=== PATIENT | male | born 1985 | race Hispanic/Latino ===

== ENCOUNTER 2017-06-10 15:15 | Emergency (ER) | payer SELFPAY | END 2017-06-10 16:22 | disposition home or self-care (01) | LOC: ERS 15:15 | DX: L50.9 Urticaria, unspecified (principal); B20 Human immunodeficiency virus [HIV] disease; F31.9 Bipolar disorder, unspecified; F41.9 Anxiety disorder, unspecified | CPT/HCPCS: 99283 ==

== ENCOUNTER 2017-11-27 21:07 | Emergency (ER) | payer SELFPAY | END 2017-11-28 01:07 | disposition home or self-care (01) | LOC: ERS 21:07 | DX: J06.9 Acute upper respiratory infection, unspecified (principal); F31.9 Bipolar disorder, unspecified; Z79.899 Other long term (current) drug therapy | CPT/HCPCS: 87081; 87430; 99283 ==

== ENCOUNTER 2018-04-24 11:27 | Inpatient (IN) | payer SELFPAY ==
[2018-04-24 12:12] LABS: #Basophils 0.1 thou/uL (0.0-0.2); #Eosinphils 0.1 thou/uL (0.0-0.7); #Lymphocytes 4.7 thou/uL (1.20-3.40); #Monocytes 1.4 thou/uL (0.11-0.59); #Neutrophils 8.5 thou/uL (1.40-6.50); %Basophils 0.4 % (0.0-1.0); %Eosinophils 0.5 % (0.0-10.0); %Lymphocytes 31.6 % (21.0-51.0); %Monocytes 9.7 % (0.0-10.0); %Neutrophils 57.7 % (42.0-75.0); Hemoglobin 16.9 g/dL (14.0-18.0); Mean Corpuscular HGB CONC 34.5 g/dL (32.0-36.0); Mean Corpuscular Hemoglobin 33.2 pg (27.0-31.0); Mean Corpuscular Volume 96.2 fL (78.0-98.0); Mean Platelet Volume 6.7 fL (7.4-10.4); Platelet Count 325 thou/uL (130-400); RBC Distribution Width 12.1 % (11.5-14.5); Red Blood Cell (RBC) Count 5.08 mill/uL (4.70-6.10); White Blood Cell (WBC) Count 14.7 thou/uL (4.8-10.8)
[2018-04-24 12:27] LABS: Actual Bicarbonate (HCO3a) 11.6 mEq/L (22-28); Base Excess (BEa) -18.1 mEq/L (-2.0 to +3.0); CO2 Tension 40.5 mmHg (35.0-45.0); O2 Tension (PaO2) 125.2 mmHg (80.0-100.0); pH, Arterial 7.07 (7.35-7.45)
[2018-04-24 12:28] LABS: Analyzer IN Cardio ER; Calcium, Ionized 1.22 mmol/L (1.12-1.30); Carboxyhemoglobin (COHb) 0.3 gm% (0.0-3.0); Hemoglobin (Hb) 18.5 g/dL (14.0-18.0); Potassium - ABG Lab 3.89 mmol/L (3.70-5.30); Puncture Site RBRACH
[2018-04-24 12:29] LABS: ALV-art Gradient 38.075 (0-20)
[2018-04-24] MEDS ORDERED: Propofol 1,000 MG/100 ML VIAL IV ONE (12:30)
[2018-04-24 12:33] LABS: ALT (SGPT) 19 U/L (8-55); AST (SGOT) 23 U/L (5-34); Acetaminophen Less than 6.0 mcg/mL (10.0-30.0); Albumin 4.5 g/dL (3.5-5.0); Alcohol Less than 10 mg/dL (Less than 10); Alkaline Phosphatase 93 U/L (40-150); Anion Gap 18 mmol/L (10-20); BUN (Urea Nitrogen) 22 mg/dL (8.9-20.6); Bilirubin, Total 0.7 mg/dL (0.2-1.2); CK (CPK) 214 U/L (30-200); Calc. Creatinine Clearance 0 mL/min (70-130); Calcium 9.4 mg/dL (7.8-10.44); Carbon Dioxide 16 mmol/L (22-29); Chloride 108 mmol/L (98-107); Estimated GFR-MDRD 61; Globulin 3.4 g/dL (2.4-3.5); Glucose 100 mg/dL (70-105); Lipase 31 U/L (8-78); Potassium 4.1 mmol/L (3.5-5.1); Protein, Total 7.9 g/dL (6.0-8.3); Salicylate Less than 8.0 mg/dL (15.0-30.0); Sodium 138 mmol/L (136-145)
[2018-04-24 12:37] LABS: CKMB 3.3 ng/mL (0-6.6); Troponin I Less than 0.010 ng/mL (< 0.028)
[2018-04-24] MEDS ORDERED: Sodium Bicarb 50 MEQ/50 ML Abboject 8.4% SYRINGE ONE (12:38)
[2018-04-24 12:39] LABS: Bilirubin Small (Negative); Blood, Urine Trace (Negative); Clarity CLEAR (Clear); Glucose, Urine (Dipstick) Negative (Negative); Leukocyte Negative (Negative); Nitrite Negative (Negative); Protein, Urine (Dipstick) 100 mg/dL (Neg-Trace); Specific Gravity, Urine 1.035 (1.002-1.036)
[2018-04-24 12:43] LABS: Squamous Epithelial 0-3 HPF (0-3); WBC/HPF 0-3 HPF (0-3)
[2018-04-24 12:44] LABS: Pathc Cast-AUWi Flag 3.05 (0-2.49)
[2018-04-24 12:47] LABS: Cocaine Metabolite Screen Detected (NotDetected); Medtox Reader # READER 4; Methamphetamine Detected (NotDetected); Phencyclidine (PCP) Detected (NotDetected); THC/Cannabinoid Screen Not Detected (NotDetected)
[2018-04-24 12:48] LABS: Amphetamine Detected (NotDetected); Barbiturates Screen Not Detected (NotDetected); Benzodiazepine Screen Not Detected (NotDetected); Medtox Control Line Valid? VALID (VALID); Methadone Not Detected (NotDetected); Opiate Screen Not Detected (NotDetected); Oxycodone Screen Not Detected (NotDetected); Tricyclic Screen Not Detected (NotDetected)
[2018-04-24 12:52] LABS: Hyaline Casts/LPF 0-3 HYALINE CAST LPF (0-3 Hyaline)
[2018-04-24 12:53] LABS: Bacteria/HPF 1+ HPF (None Seen); Manual Microscopic Reviewed? No Path Casts Seen; RBC/HPF 0-3 HPF (0-3); Renal Epithelial None Seen HPF (0-3); Transitional Epithelial NONE SEEN HPF (0-3)
--- NOTE | 2018-04-24 13:08 | CT ---
CT BRAIN WITHOUT CONTRAST: Date: 04/24/18 HISTORY: Altered mental status. COMPARISON: CT brain from 2010. FINDINGS: No acute territorial infarct or hemorrhage. No midline shift or mass effect. Ventricular size and ext ra-axial CSF spaces are normal. Calvarium is intact. Paranasal sinuses and mastoids are clear. IMPRESSION: No acute intracranial abnormality. POS: [facility]
--- NOTE | 2018-04-24 13:42 | RAD ---
CHEST 1 VIEW: Date: 04/24/18 HISTORY: Altered mental status. Patient has history of PCP overdose. COMPARISON: 12/03/12. FINDINGS: Portable supine chest radiograph demonstrates a tracheostomy. Normal cardiac silhouette. Pulmonary ve ssels and hilum are normal. No consolidation or mass. No pneumothorax or acute osseous abnormality. C hronic changes to the distal left and right clavicle are noted. IMPRESSION: No acute cardiopulmonary process. POS: [facility]
[2018-04-24] MEDS ORDERED: Ventilator Sedation Protocol 1 EACH FS ONE (15:05)
[2018-04-24] MEDS ORDERED: CCU Electrolyte Replacement 1 EACH FS ONE (15:05)
[2018-04-24] MEDS ORDERED: Acetaminophen 325 MG TAB PO PRN (15:05)
[2018-04-24] MEDS ORDERED: Acetaminophen 650 MG Suppository PR PRN (15:05)
[2018-04-24] MEDS ORDERED: DISCONTINUE PREVIOUS NARCOTIC PAIN MEDICATIONS AND BENZODIAZEPINES FS SCH (15:17)
[2018-04-24] MEDS ORDERED: fentaNYL Citrate/PF 2,000 MCG in Sodium Chloride 0.9% 60 ML IV SCH (15:17)
[2018-04-24] MEDS ORDERED: Propofol BOLUS 1,000 MG/100 ML VIAL IV PRN (15:17)
[2018-04-24] MEDS ORDERED: Fentanyl BOLUS 250 ML IVPB PRN (15:17)
[2018-04-24] MEDS ORDERED: Magnesium 2 GM/NS 0.9% 100 ML 2 GM in Premix Bag 1 BAG IVPB PRN (15:18)
[2018-04-24] MEDS ORDERED: Potassium Chloride 40 MEQ in Premix Bag 1 BAG IVPB PRN (15:18)
[2018-04-24] MEDS ORDERED: Magnesium Oxide 400 MG TAB PO PRN ×2 (15:18)
[2018-04-24] MEDS ORDERED: Potassium Phosphate 9 MMOL in Sodium Chloride 0.9% 100 ML IVPB PRN (15:18)
[2018-04-24] MEDS ORDERED: CCU ELECTROLYTE REPLACEMENT PROTOCOL FS PRN (15:18)
[2018-04-24] MEDS ORDERED: Potassium Chloride 40 MEQ in Sodium Chloride 0.9% 250 ML 250 ML IVPB PRN (15:18)
[2018-04-24] MEDS ORDERED: Potassium Phosphate 15 MMOL in Sodium Chloride 0.9% 250 ML 250 ML IV PRN (15:18)
[2018-04-24] MEDS ORDERED: Potassium Phosphate 12 MMOL in Sodium Chloride 0.9% 250 ML 250 ML IV PRN (15:18)
[2018-04-24] MEDS ORDERED: Potassium Chloride 20 MEQ TAB PO PRN (15:18)
[2018-04-24 15:55] LABS: Actual Bicarbonate (HCO3a) 21.9 mEq/L (22-28); Base Excess (BEa) -2.5 mEq/L (-2.0 to +3.0); Calcium, Ionized 1.16 mmol/L (1.12-1.30); Hemoglobin (Hb) 14.9 g/dL (14.0-18.0); Potassium - ABG Lab 3.08 mmol/L (3.70-5.30); Puncture Site RRA; pH, Arterial 7.39 (7.35-7.45)
[2018-04-24] MEDS: Sodium Chloride 0.9% 1,000 ML IV SCH ×2 (16:17→23:38)
[2018-04-24] MEDS: Propofol 1,000 MG/100 ML VIAL IV PRN ×2 (16:19→22:03)
[2018-04-24] MEDS: Lorazepam 2 MG/ML VIAL SLOW IVP PRN ×2 (16:20→21:13)
[2018-04-24] MEDS: Famotidine 20 MG TAB PO SCH (21:01)
[2018-04-24] MEDS: Famotidine/PF 20 mg/2ml Vial SLOW IVP SCH (21:01)
--- NOTE | 2018-04-24 23:24 | CON ---
DATE OF CONSULTATION: 04/24/2018 CONSULTING PHYSICIAN: Dr. Garber. REASON FOR CONSULTATION: Drug overdose with acute intoxication and marianne. Following encompasses 45 minutes of critical care time. 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 He has been seen by Dr. Erickson in the past. I believe the tracheostomy was plac ed by Dr. Traylor back in 2010 and I am not sure who has been managing the tracheostomy since that . Apparently, the patient is a drug abuser and mixed several drugs together today including cocaine, PC P, and became agitated be on control the ER personnel. They changed his trachea and put him on a jonah tilator and sedated him with propofol. PAST MEDICAL HISTORY: 1. Tracheal stenosis 2. Human immunodeficiency virus. 3. Bipolar disorder. 4. Anxiety. PAST SURGICAL HISTORY: Tonsillectomy and the tracheostomy placement. MEDICATIONS PRIOR TO ADMISSION: Zyrtec 10 mg daily. ALLERGIES: AMOXICILLIN, AUGMENTIN, ALL PENICILLINS. REVIEW OF SYSTEMS: Cannot be obtained as patient is currently mechanical ventilation and is deeply s edated. PHYSICAL EXAMINATION: VITAL SIGNS: Temperature 98.9, pulse 80, blood pressure 108/58, O2 sat 98%. GENERAL: The patient is currently on mechanical ventilation and is in no acute distress. HEENT: Unremarkable. Pupils are 3 mm and reactive. Sclerae anicteric. NECK: Tracheostomy in place, appears clean. Tracheostomy hole appears slightly enlarged. CARDIAC: S1, S2 regular. LUNGS: Clear. ABDOMEN: Soft, nontender. EXTREMITIES: No clubbing, cyanosis, or edema. LABORATORY DATA: The initial blood gas showed a pH 7.07, pCO2 of 40, pO2 of 125, but a repeat blood gas was normal. Sodium 138, potassium 4.1, chloride 108, CO2 of 16, BUN 22, creatinine 1.4, glucose 100. CPK 214. White blood cell count 14.7, hematocrit 48.9, platelet count 325. Tox screen is posi tive for PCP, amphetamines, methamphetamines and cocaine. Chest x-ray shows no mass, effusion, or in filtrate. Brain CT shows no acute intracranial abnormality. ASSESSMENT: 1. Acute delirium secondary to substance abuse. 2. Respiratory failure - induced for management of his delirium given the need for continuous IV sed ation. PLAN: Patient will be left on mechanical ventilation at least overnight. He will be left on deep se dation. We will recheck his labs in the morning. He is getting IV fluids, he is getting enoxaparin for DVT prophylaxis, famotidine for gastrointestinal prophylaxis.
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
[2018-04-25] MEDS: Propofol 1,000 MG/100 ML VIAL IV PRN ×4 (02:50→20:01)
[2018-04-25 05:41] LABS: #Eosinphils 0.2 thou/uL (0.0-0.7); #Lymphocytes 2.6 thou/uL (1.20-3.40); #Monocytes 1.2 thou/uL (0.11-0.59); #Neutrophils 5.1 thou/uL (1.40-6.50); %Basophils 0.5 % (0.0-1.0); %Eosinophils 2.2 % (0.0-10.0); %Lymphocytes 28.2 % (21.0-51.0); %Monocytes 13.3 % (0.0-10.0); %Neutrophils 55.8 % (42.0-75.0); Hemoglobin 15.1 g/dL (14.0-18.0); Mean Corpuscular HGB CONC 33.3 g/dL (32.0-36.0); Mean Corpuscular Hemoglobin 32.3 pg (27.0-31.0); Mean Corpuscular Volume 96.9 fL (78.0-98.0); Mean Platelet Volume 7.5 fL (7.4-10.4); Platelet Count 198 thou/uL (130-400); RBC Distribution Width 12.3 % (11.5-14.5); Red Blood Cell (RBC) Count 4.67 mill/uL (4.70-6.10); White Blood Cell (WBC) Count 9.1 thou/uL (4.8-10.8)
[2018-04-25 05:51] LABS: Anion Gap 13 mmol/L (10-20); BUN (Urea Nitrogen) 20 mg/dL (8.9-20.6); Calc. Creatinine Clearance 153 mL/min (70-130); Calcium 8.3 mg/dL (7.8-10.44); Carbon Dioxide 16 mmol/L (22-29); Chloride 117 mmol/L (98-107); Estimated GFR-MDRD Greater than 90; Glucose 66 mg/dL (70-105); Potassium 3.5 mmol/L (3.5-5.1); Sodium 142 mmol/L (136-145)
[2018-04-25 07:16] LABS: Actual Bicarbonate (HCO3a) 20.2 mEq/L (22-28); Base Excess (BEa) -3.9 mEq/L (-2.0 to +3.0); CO2 Tension 34.1 mmHg (35.0-45.0); Carboxyhemoglobin (COHb) 0.7 gm% (0.0-3.0); Hemoglobin (Hb) 14.4 g/dL (14.0-18.0); O2 Tension (PaO2) 139.7 mmHg (80.0-100.0); pH, Arterial 7.39 (7.35-7.45)
[2018-04-25 07:17] LABS: ALV-art Gradient 31.575 (0-20); Potassium - ABG Lab 3.13 mmol/L (3.70-5.30); Puncture Site RBA
--- NOTE | 2018-04-25 08:18 | PDOC.PN ---
- Subjective Encounter Start Date: 04/25/18 Encounter Start Time: 08:17 Subjective: intubated, sedated - Objective Resuscitation Status: Resuscitation Status FULL:Full Resuscitation MAR Reviewed: Yes Vital Signs & Weight: Vital Signs (12 hours) Temp Pulse Resp BP 04/25/18 06:55 50 L 104/58 L 04/25/18 06:00 16 04/25/18 04:00 97.6 F 16 04/25/18 02:14 51 L 97/57 L 04/25/18 02:00 16 04/25/18 00:00 98 F 16 04/24/18 22:13 58 L 82/45 L 04/24/18 22:00 16 Weight Weight 207 lb 0.225 oz Most Recent Monitor Data Heart Rate from ECG 49 NIBP 98/60 NIBP BP-Mean 72 Respiration from ECG 16 SpO2 100 I&O: 04/24/18 04/25/18 04/26/18 06:59 06:59 06:59 Intake Total 2062 Output Total 685 Balance 1377 Result Diagrams: 04/25/18 04:50 04/25/18 04:50 Phys Exam - Physical Examination pupils pinpoint Neck: no JVD Respiratory: clear to auscultation bilateral Cardiovascular: RRR, no significant murmur Gastrointestinal: soft, positive bowel sounds Musculoskeletal: no edema Dx/Plan (1) Acute respiratory failure with hypoxemia Code(s): J96.01 - ACUTE RESPIRATORY FAILURE WITH HYPOXIA Status: Acute (2) Encephalopathy acute Code(s): G93.40 - ENCEPHALOPATHY, UNSPECIFIED Status: Acute (3) Polysubstance abuse Code(s): F19.10 - OTHER PSYCHOACTIVE SUBSTANCE ABUSE, UNCOMPLICATED Status: Acute - Plan vent per pulmonology -: discuss with pulmonology * .
[2018-04-25] MEDS: Enoxaparin Sodium 40 MG/0.4 ML SYRINGE SC SCH (10:17)
[2018-04-25] MEDS: Famotidine 20 MG TAB PO SCH ×2 (10:18→20:01)
[2018-04-25] MEDS: Famotidine/PF 20 mg/2ml Vial SLOW IVP SCH ×2 (10:18→20:01)
--- NOTE | 2018-04-25 12:17 | PRG ---
DATE OF SERVICE: 04/25/2018 Mr. Gay events have been reviewed. He is combative when he is not sedated so we will keep him sed ated until tomorrow. I plan to start him on Precedex this evening. PHYSICAL EXAMINATION: VITAL SIGNS: He is afebrile, blood pressure 104/65, heart rate 70, respiratory rates in the teens. LUNGS: Clear. CARDIOVASCULAR: Regular rhythm. ABDOMEN: Soft. IMPRESSION: 1. Respiratory failure secondary to multiple drug overdose. 2. Tracheal stenosis. 3. Human immunodeficiency virus positive. PLAN: Hopefully, trach collar trial tomorrow if he is cooperative on Precedex. Critical care time was 30 minutes.
[2018-04-25] MEDS: Lorazepam 2 MG/ML VIAL SLOW IVP PRN ×2 (12:35→17:43)
[2018-04-25] MEDS: Sodium Chloride 0.9% 1,000 ML IV SCH ×2 (12:35→20:01)
[2018-04-25 13:15] VITALS: BMI 31.4
[2018-04-26] MEDS: Propofol 1,000 MG/100 ML VIAL IV PRN ×6 (00:20→20:06)
[2018-04-26] MEDS: Sodium Chloride 0.9% 1,000 ML IV SCH ×3 (06:42→20:07)
--- NOTE | 2018-04-26 07:56 | RAD ---
PORTABLE CHEST: Date: 04/26/18 PROVIDED CLINICAL HISTORY: Respiratory insufficiency. FINDINGS: Comparison with 04/24/18. Cardiac and mediastinal silhouette is unchanged in appearance. Tracheostomy appliance is again seen i n similar position. No focal consolidation, pleural fluid, or pneumothorax apparent. IMPRESSION: No evidence for an acute cardiopulmonary process. POS: [facility]
[2018-04-26 08:20] LABS: #Eosinphils 0.2 thou/uL (0.0-0.7); #Lymphocytes 1.1 thou/uL (1.20-3.40); #Monocytes 0.5 thou/uL (0.11-0.59); #Neutrophils 7.5 thou/uL (1.40-6.50); %Basophils 0.4 % (0.0-1.0); %Eosinophils 2.1 % (0.0-10.0); %Lymphocytes 12.1 % (21.0-51.0); %Monocytes 5.3 % (0.0-10.0); %Neutrophils 80.1 % (42.0-75.0); Mean Corpuscular HGB CONC 33.5 g/dL (32.0-36.0); Mean Corpuscular Volume 95.6 fL (78.0-98.0); Mean Platelet Volume 7.9 fL (7.4-10.4); Platelet Count 138 thou/uL (130-400); RBC Distribution Width 12.3 % (11.5-14.5); Red Blood Cell (RBC) Count 4.68 mill/uL (4.70-6.10); White Blood Cell (WBC) Count 9.3 thou/uL (4.8-10.8)
[2018-04-26 08:31] LABS: Anion Gap 10 mmol/L (10-20); BUN (Urea Nitrogen) 15 mg/dL (8.9-20.6); Calc. Creatinine Clearance 0 mL/min (70-130); Calcium 8.2 mg/dL (7.8-10.44); Carbon Dioxide 16 mmol/L (22-29); Chloride 119 mmol/L (98-107); Estimated GFR-MDRD Greater than 90; Glucose 79 mg/dL (70-105); Potassium 3.8 mmol/L (3.5-5.1); Sodium 141 mmol/L (136-145)
[2018-04-26] MEDS: Enoxaparin Sodium 40 MG/0.4 ML SYRINGE SC SCH (09:52)
[2018-04-26] MEDS: Famotidine/PF 20 mg/2ml Vial SLOW IVP SCH (09:52)
[2018-04-26 10:06] LABS: HIV (1/2) Antibody/Antigen Reflxed Confirmation (NonReactive)
[2018-04-26 10:11] LABS: HIV 1/2 INDEX 444.27 S/CO (<1.00)
--- NOTE | 2018-04-26 10:50 | PDOC.PN ---
- Subjective Encounter Start Date: 04/26/18 Encounter Start Time: 10:00 Subjective: on vent, sedated - Objective Resuscitation Status: Resuscitation Status FULL:Full Resuscitation MAR Reviewed: Yes Vital Signs & Weight: Vital Signs (12 hours) Temp Pulse Resp BP Pulse Ox 04/26/18 10:24 51 L 142/101 H 04/26/18 10:00 16 04/26/18 08:00 16 98 04/26/18 07:00 97.5 F L 04/26/18 06:34 63 117/78 04/26/18 06:00 16 04/26/18 04:00 16 04/26/18 03:00 97.7 F 04/26/18 02:10 48 L 04/26/18 02:00 16 04/26/18 00:00 16 04/25/18 23:00 98.4 F Weight Admit Weight 207 lb Weight 3.323 oz Most Recent Monitor Data Heart Rate from ECG 53 NIBP 142/101 NIBP BP-Mean 114 Respiration from ECG 16 SpO2 98 I&O: 04/25/18 04/26/18 04/27/18 06:59 06:59 06:59 Intake Total 2062 3131 Output Total 685 790 365 Balance 1377 2341 -365 Result Diagrams: 04/26/18 08:14 04/26/18 08:02 Additional Labs: Accuchecks 04/26/18 04:38 POC Glucose 74 Phys Exam - Physical Examination HEENT: PERRLA, sclera anicteric Neck: no JVD, supple Respiratory: no wheezing, no rales Cardiovascular: RRR, no significant murmur Gastrointestinal: soft, non-tender, positive bowel sounds Musculoskeletal: no edema, pulses present Neurological: non-focal, moves all 4 limbs Dx/Plan (1) Acute respiratory failure with hypoxemia Code(s): J96.01 - ACUTE RESPIRATORY FAILURE WITH HYPOXIA Status: Acute (2) Encephalopathy acute Code(s): G93.40 - ENCEPHALOPATHY, UNSPECIFIED Status: Acute Comment: pschosis sec to polysubstance abuse (3) Polysubstance abuse Code(s): F19.10 - OTHER PSYCHOACTIVE SUBSTANCE ABUSE, UNCOMPLICATED Status: Acute - Plan weaning per pulm advice -: is on precedex -: continue iv fluids and pepcid -: [facility] consultation once stable -: HIV confirmation, CD4 levels * . Review of Systems - Medications/Allergies Allergies/Adverse Reactions: Allergies Allergy/AdvReac Type Severity Reaction Status Date / Time amoxicillin [From Augmentin] Allergy Hives Verified 04/24/18 12:58 clavulanic acid Allergy Hives Verified 04/24/18 12:58 [From Augmentin] Penicillins Allergy Verified 04/24/18 13:35 Medications: Current Medications Acetaminophen (Tylenol) 650 mg CA Q4H PRN PRN Reason: Headache/Fever or Pain Acetaminophen (Tylenol) 650 mg PO Q4H PRN PRN Reason: Headache/Fever or Pain Enoxaparin Sodium (Lovenox) 40 mg SC 0900 [facility] Last Admin: 04/26/18 09:52 Dose: 40 mg Famotidine (Pepcid) 20 mg PO BID [facility] Last Admin: 04/25/18 20:01 Dose: Not Given Sodium Chloride (Normal Saline 0.9%) 1,000 mls @ 100 mls/hr IV .Q10H [facility] Last Admin: 04/26/18 06:42 Dose: 1,000 mls Fentanyl Citrate 2,000 mcg/ (Sodium Chloride) 100 mls @ 0 mls/hr IV INF [facility]; Protocol Stop: 05/24/18 15:17 Fentanyl Citrate (Fentanyl Bolus) 250 mls @ 0 mls/hr IVPB PRN PRN PRN Reason: Breakthrough pain/agitation Stop: 05/24/18 15:17 Potassium Chloride 40 meq/ (Sodium Chloride) 270 mls @ 135 mls/hr IVPB ASDIR PRN PRN Reason: FOR SERUM K+ 2.5 - 3.5 Last Admin: 04/25/18 07:04 Dose: 270 mls Potassium Chloride 40 meq/ (Device) 100 mls @ 50 mls/hr IVPB ASDIR PRN PRN Reason: FOR SERUM K+ 2.5 - 3.5 Magnesium Sulfate 1 gm/ Sodium (Chloride) 102 mls @ 102 mls/hr IV PRN PRN PRN Reason: MAG LEVEL 1.4 - 2.0 Magnesium Sulfate 2 gm/ Device 100 mls @ 100 mls/hr IVPB ASDIR PRN PRN Reason: MAGNESIUM < 1.4 Potassium Phosphate 9 mmol/ (Sodium Chloride) 103 mls @ 25.75 mls/hr IVPB ASDIR PRN PRN Reason: Phosphate 1.0-1.8 Potassium Phosphate 12 mmol/ (Sodium Chloride) 254 mls @ 63.5 mls/hr IV ASDIR PRN PRN Reason: Serum phosphate 0.5-0.9 Potassium Phosphate 15 mmol/ (Sodium Chloride) 255 mls @ 63.75 mls/hr IV ASDIR PRN PRN Reason: Serum Phos < 0.5 Thiamine HCl 100 mg/ Sodium (Chloride) 51 mls @ 100 mls/hr IVPB Q12HR [facility] Stop: 04/28/18 21:01 Last Admin: 04/25/18 20:03 Dose: 51 mls Dexmedetomidine HCl 400 mcg/ (Sodium Chloride) 100 mls @ 0 mls/hr IVPB INF [facility] ; Protocol Last Admin: 04/26/18 07:10 Dose: 100 mls Lorazepam (Ativan) 2 mg SLOW IVP Q1H PRN PRN Reason: Breakthrough agitation Stop: 05/24/18 15:17 Last Admin: 04/25/18 17:43 Dose: 2 mg Magnesium Oxide (Magnesium Oxide) 400 mg PO BIDPRN PRN PRN Reason: FOR SERUM MAG 1.4 - 2.0 Magnesium Oxide (Magnesium Oxide) 800 mg PO PRN PRN PRN Reason: FOR SERUM MAG < 1.4 Miscellaneous Medication (Phos-Nak) 1 pkt PO TIDPRN PRN PRN Reason: FOR PHOS LEVEL 1.0 - 1.8 Miscellaneous Medication (Phos-Nak) 2 pkt PO TIDPRN PRN PRN Reason: FOR PHOS LEVEL 0.5 - 1.0 Morphine Sulfate (Morphine) 2 mg SLOW IVP Q1H PRN PRN Reason: BREAKTHROUGH PAIN/AGITATION Last Admin: 04/25/18 03:58 Dose: 2 mg Discontinue Previous Narcotic Pain Medications And Benzodiazepines 1 each FS .ONE [facility] Stop: 05/24/18 15:17 Ccu Electrolyte (Replacement Protocol) 0 each FS PRN PRN PRN Reason: FOR ELECTROLYTE REPLACEMENT Potassium Chloride (K-Dur) 40 meq PO ASDIR PRN PRN Reason: FOR SERUM K+ 2.5 - 3.5 Potassium Chloride (Klor-Con) 40 meq PER TUBE ASDIR PRN PRN Reason: FOR SERUM K+ 2.5-3.5 Propofol (Diprivan) 1,000 mg IV INF PRN; Protocol PRN Reason: TO ACHIEVE GOAL RASS Stop: 05/24/18 15:17 Last Admin: 04/26/18 09:52 Dose: 1,000 mg Propofol (Diprivan Bolus) 20 mg IV Q5MIN PRN PRN Reason: BREAKTHROUGH AGITATION Stop: 05/24/18 15:17
[2018-04-26] MEDS: Famotidine 20 MG TAB PO SCH ×2 (11:07→20:07)
--- NOTE | 2018-04-26 12:09 | PRG ---
DATE OF SERVICE: 04/26/2018 SERVICE: Pulmonary Medicine. INTERVAL HISTORY: The patient is doing fine from a respiratory standpoint. He is breathing comfortably. When we turn off the sedation, he got extraordinarily wild still. He is maxed out on Precedex. The propofol is still on board and he currently needs it. That being said, he is getting wild with a little bit less. He is comfortably overbreathing the ventilator and there has been no interval change to his condition. Nursing reports no overnight events. PHYSICAL EXAMINATION: VITAL SIGNS: Afebrile, pulse 51, blood pressure 142/101, respirations 16, saturation 98% on room air. GENERAL: The patient is awake, alert, no apparent distress. LUNGS: Excellent air entry. There is no prolonged expiratory phase or wheezing. HEART: Normal rate, regular. ABDOMEN: Soft, nontender, nondistended. Bowel sounds are positive. MUSCULOSKELETAL: No cyanosis or clubbing. No pitting in the bilateral lower extremities. NEUROLOGIC: Grossly nonfocal. LABORATORY DATA: WBC 9.3, hemoglobin 15.0, platelets 138,000. Basic metabolic profile is unremarkable except for chloride of 119 and bicarbonate of 16. Urine drug screen is positive for everything. HIV is positive. Blood cultures x2 and urine culture negative to date. IMAGING DATA: Chest x-ray demonstrates no acute cardiopulmonary abnormality. Tracheostomy tube is in good position. ASSESSMENT: 1. Respiratory failure secondary to required sedation. 2. Metabolic encephalopathy. 3. Polysubstance drug overdose. 4. Tracheal stenosis. 5. Human immunodeficiency virus. DISCUSSION AND PLAN: He is still quite wild. We will wean away the propofol as tolerated and find that minimal effective dose. Once he meets criteria from a mentation standpoint, we will put him on T-collar. Pulmonary Critical Care will continue to follow along for the time being. Critical care time: 30 minutes. MTDD
[2018-04-27] MEDS: Propofol 1,000 MG/100 ML VIAL IV PRN ×3 (00:36→08:31)
[2018-04-27 06:32] VITALS: BP 99/52
[2018-04-27] MEDS: Enoxaparin Sodium 40 MG/0.4 ML SYRINGE SC SCH (08:30)
[2018-04-27] MEDS: Famotidine 20 MG TAB PO SCH (08:31)
[2018-04-27 09:42] LABS: HBCM Index 0.08 S/CO (0-0.79); HBSAg Index 0.19 S/CO (0-0.99); Hep A IgM AB Non-Reactive (NonReactive); Hep A IgM S/CO 0.14 S/CO (0-0.79); Hep B Surf Ag Non-Reactive S/CO (NonReactive); Hep C IgG Ab Non-Reactive (NonReactive); Hep C Index 0.12 S/CO (0-0.79); Hepatitis B Core IGM Abs Non-Reactive (NonReactive)
[2018-04-27 11:08] LABS: HIV 1 Antibody Multi-Spot Positive (Negative); HIV 2 Antibody Multi-Spot Negative (Negative); HIV Multi-spot Interp HIV-1 Positive (.)
--- NOTE | 2018-04-27 11:21 | PDOC.PN ---
- Subjective Encounter Start Date: 04/27/18 Encounter Start Time: 08:35 Subjective: on vent, not in distress - Objective Resuscitation Status: Resuscitation Status FULL:Full Resuscitation MAR Reviewed: Yes Vital Signs & Weight: Vital Signs (12 hours) Temp Pulse Resp BP Pulse Ox 04/27/18 07:13 23 H 97 04/27/18 06:51 98.1 F 04/27/18 06:30 65 99/52 L 04/27/18 06:00 21 H 04/27/18 04:00 20 04/27/18 03:00 97.8 F 04/27/18 02:10 67 04/27/18 02:00 20 04/27/18 00:00 20 Weight Admit Weight 207 lb Weight 209 lb 7.026 oz Most Recent Monitor Data Heart Rate from ECG 65 NIBP 99/52 NIBP BP-Mean 66 Respiration from ECG 24 SpO2 98 I&O: 04/26/18 04/27/18 04/28/18 06:59 06:59 06:59 Intake Total 3131 2529 Output Total 790 2875 Balance 2341 -346 Result Diagrams: 04/26/18 08:14 04/26/18 08:02 Phys Exam - Physical Examination HEENT: PERRLA, moist MMs Neck: no JVD, supple Respiratory: no wheezing, no rales Cardiovascular: RRR, no significant murmur Gastrointestinal: soft, non-tender, no distention, positive bowel sounds Musculoskeletal: no edema, pulses present Neurological: non-focal, moves all 4 limbs Dx/Plan (1) Acute respiratory failure with hypoxemia Code(s): J96.01 - ACUTE RESPIRATORY FAILURE WITH HYPOXIA Status: Acute (2) Encephalopathy acute Code(s): G93.40 - ENCEPHALOPATHY, UNSPECIFIED Status: Acute Comment: pschosis sec to polysubstance abuse (3) Polysubstance abuse Code(s): F19.10 - OTHER PSYCHOACTIVE SUBSTANCE ABUSE, UNCOMPLICATED Status: Acute (4) HIV (human immunodeficiency virus infection) Status: Chronic - Plan HIV is confirmed positive -: 11am got extubated, pt apparently not aware of his HIV status -: will d/w above with patient -: ac hep panel is -ve, hiv quantitative titre and CD4 are pending -: to see pt here or pt has to f/u with him * . Review of Systems - Medications/Allergies Allergies/Adverse Reactions: Allergies Allergy/AdvReac Type Severity Reaction Status Date / Time amoxicillin [From Augmentin] Allergy Hives Verified 04/24/18 12:58 clavulanic acid Allergy Hives Verified 04/24/18 12:58 [From Augmentin] Penicillins Allergy Verified 04/24/18 13:35 Medications: Current Medications Acetaminophen (Tylenol) 650 mg FL Q4H PRN PRN Reason: Headache/Fever or Pain Acetaminophen (Tylenol) 650 mg PO Q4H PRN PRN Reason: Headache/Fever or Pain Enoxaparin Sodium (Lovenox) 40 mg SC 0900 [facility] Last Admin: 04/27/18 08:30 Dose: 40 mg Thiamine HCl 100 mg/ Sodium (Chloride) 51 mls @ 100 mls/hr IVPB Q12HR [facility] Stop: 04/28/18 21:01 Last Admin: 04/27/18 08:37 Dose: 51 mls Levofloxacin 750 mg/ Device 150 mls @ 100 mls/hr IVPB Q24HR [facility] Stop: 04/27/18 11:59 Last Admin: 04/27/18 10:55 Dose: 150 mls Levofloxacin (Levaquin) 750 mg PO 0600 [facility] Discontinue Previous Narcotic Pain Medications And Benzodiazepines 1 each FS .ONE [facility] Stop: 05/24/18 15:17 Ccu Electrolyte (Replacement Protocol) 0 each FS PRN PRN PRN Reason: FOR ELECTROLYTE REPLACEMENT
--- NOTE | 2018-04-27 12:37 | PRG ---
DATE OF SERVICE: 04/27/2018 SERVICE: Pulmonary Medicine. INTERVAL HISTORY: The patient is starting to put up copious amounts of purulent material coming out of this tracheostomy. Outside of this, he had a fantastic improvement in mentation. He denies any suicidal or homicidal ideation. We have given him a long leash in the ICU, and he is making plans to meet with friends once he gets out. He denies any current chest pain, nausea, vomiting, fevers or chills. Otherwise, he is returning to his usual state of health. PHYSICAL EXAMINATION: VITAL SIGNS: Afebrile, pulse 65, blood pressure 99/52, respirations 24, saturation 98% on 21% FiO2 and a PEEP of 5. GENERAL: The patient is awake and alert, in no apparent distress. LUNGS: Decent air entry. Rhonchi are present. There is no prolonged expiratory phase or wheezing. HEART: Normal rate, regular. ABDOMEN: Soft, nontender, nondistended. Bowel sounds are positive. MUSCULOSKELETAL: No cyanosis or clubbing. There is no pitting in the bilateral lower extremities. NEUROLOGIC: Grossly nonfocal. ASSESSMENT: 1. Respiratory failure secondary to required sedation, resolved. 2. Metabolic encephalopathy, resolved. 3. Polysubstance drug overdose. 4. Tracheal stenosis, status post tracheostomy, remote. 5. Human immunodeficiency virus, DISCUSSION AND PLAN: For the severe, purulent sputum production, I am going to treat him like a bronchitis and give him a 7-day course of fluoroquinolone. We will start feeding him. He is on a T-collar right now if he tolerates this for a period of time, we will change his tracheostomy over to a 6-0 fenestrated cuffless device. We start to mobilize him as tolerated. Pulmonary Critical Care will continue to follow along. If he tolerates the new tracheostomy, he can be transitioned to the floor or even discharged as his mentation is much improved. Critical care time: 30 minutes. ANU
--- NOTE | 2018-04-27 13:02 | PDOC.EVN ---
Event Note - Event Note Event Note: D/w patient about his HIV +ve status, says he has been +ve for a year now and takes once daily medication for it which he cannot remember. He follows with apparently. May dc home this afternoon if he ambulates in hallway and eats well prior to discharge.
[2018-04-27 13:24] VITALS: TEMP 98.1
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
[2018-04-29 13:22] LABS: HIV-1 Quantitative, RNA PCR <20 copies/mL (.)
== END 2018-04-27 15:00 | disposition home or self-care (01) | DRG 917 ==
LOC: ERS 11:27 → CCU 15:04
PROVIDERS: ADMIT Internal Medicine; ATTEND Internal Medicine
PROC: 5A1935Z Respiratory Ventilation, Less than 24 Consecutive Hours (ICD-10-PCS; principal; 2018-04-24)
DX: T40.994A Poisoning by other psychodysleptics [hallucinogens], undetermined, initial encounter (principal); J96.01 Acute respiratory failure with hypoxia; G93.40 Encephalopathy, unspecified; F29 Unspecified psychosis not due to a substance or known physiological condition; Z21 Asymptomatic human immunodeficiency virus [HIV] infection status; F41.9 Anxiety disorder, unspecified; F31.9 Bipolar disorder, unspecified; Z93.0 Tracheostomy status; Z88.0 Allergy status to penicillin; Z79.899 Other long term (current) drug therapy; F14.10 Cocaine abuse, uncomplicated; F15.10 Other stimulant abuse, uncomplicated
CPT/HCPCS: 31502; 36415; 36416; 51702; 70450; 71045; 80048; 80053; 80074; 80306; 80307; 81003; 81015; 82553; 82805; 83690; 84443; 84484; 85025; 85048; 86361; 86701; 86702; 87040; 87070; 87077; 87086; 87186; 87205; 87389; 87536; 89220; 93005; 94002; 94003; 94640; 96361; 96365; 96366; 96374; 96375; J1650; J1956; J2060; J2270; J2704; J3411; J3480; J7050; S0028

== ENCOUNTER 2018-04-29 11:11 | Emergency (ER) | payer SELFPAY ==
[2018-04-29 12:09] LABS: Acetaminophen Less than 6.0 mcg/mL (10.0-30.0); Alcohol Less than 10 mg/dL (Less than 10); Salicylate Less than 8.0 mg/dL (15.0-30.0)
[2018-04-29 12:10] LABS: ALT (SGPT) 58 U/L (8-55); AST (SGOT) 138 U/L (5-34); Albumin 4.3 g/dL (3.5-5.0); Alkaline Phosphatase 95 U/L (40-150); Anion Gap 15 mmol/L (10-20); BUN (Urea Nitrogen) 8 mg/dL (8.9-20.6); Bilirubin, Total 0.8 mg/dL (0.2-1.2); Calc. Creatinine Clearance 0 mL/min (70-130); Calcium 9.8 mg/dL (7.8-10.44); Carbon Dioxide 20 mmol/L (22-29); Chloride 109 mmol/L (98-107); Estimated GFR-MDRD Greater than 90; Globulin 3.6 g/dL (2.4-3.5); Glucose 122 mg/dL (70-105); Potassium 3.5 mmol/L (3.5-5.1); Protein, Total 7.9 g/dL (6.0-8.3); Sodium 140 mmol/L (136-145)
[2018-04-29 12:12] LABS: #Basophils 0.1 thou/uL (0.0-0.2); #Eosinphils 0.2 thou/uL (0.0-0.7); #Lymphocytes 2.2 thou/uL (1.20-3.40); #Monocytes 0.8 thou/uL (0.11-0.59); #Neutrophils 6.1 thou/uL (1.40-6.50); %Basophils 1.1 % (0.0-1.0); %Eosinophils 2.6 % (0.0-10.0); %Lymphocytes 23.1 % (21.0-51.0); %Monocytes 8.9 % (0.0-10.0); %Neutrophils 64.4 % (42.0-75.0); Hemoglobin 16.5 g/dL (14.0-18.0); Mean Corpuscular HGB CONC 35.4 g/dL (32.0-36.0); Mean Corpuscular Hemoglobin 33.1 pg (27.0-31.0); Mean Corpuscular Volume 93.6 fL (78.0-98.0); Mean Platelet Volume 7.4 fL (7.4-10.4); Platelet Count 270 thou/uL (130-400); RBC Distribution Width 11.9 % (11.5-14.5); White Blood Cell (WBC) Count 9.5 thou/uL (4.8-10.8)
--- NOTE | 2018-04-29 13:44 | RAD ---
PORTABLE CHEST: Date: 04/29/18 HISTORY: Dyspnea. COMPARISON: 04/26/18. FINDINGS: Heart size and mediastinum are within normal limits. Tracheostomy tube remains in place. Lungs are cl ear of infiltrates. IMPRESSION: No active intrathoracic disease. POS: [facility]
--- NOTE | 2018-05-03 12:25 | EKG ---
Test Reason : Blood Pressure : / mmHG Vent. Rate : 109 BPM Atrial Rate : 109 BPM P-R Int : 130 ms QRS Dur : 078 ms QT Int : 332 ms P-R-T Axes : 056 -10 026 degrees QTc Int : 447 ms Sinus tachycardia Possible Left atrial enlargement Nonspecific T wave abnormality Abnormal ECG Confirmed by MOHAN HERBERT ([id number]), assistant film editor SERVANDO DOSS ([id number]) on 05/03/2018 12:24:33 PM Referred By: Confirmed By:MOHAN HERBERT
== END 2018-04-29 12:47 | disposition home or self-care (01) ==
LOC: ERS 11:11
DX: F19.10 Other psychoactive substance abuse, uncomplicated (principal); F32.9 Major depressive disorder, single episode, unspecified; B20 Human immunodeficiency virus [HIV] disease; F41.9 Anxiety disorder, unspecified; F31.9 Bipolar disorder, unspecified; Z79.899 Other long term (current) drug therapy
CPT/HCPCS: 71045; 80053; 80307; 83605; 85025; 93005; 96360

== ENCOUNTER 2018-04-30 15:47 | Emergency (ER) | payer SELFPAY ==
[2018-04-30] MEDS ORDERED: methylPREDNISolone Sod Succ/PF 125 MG/2 ML VIAL ONE (16:20)
[2018-04-30] MEDS ORDERED: diphenhydrAMINE 50 MG/ML VIAL ONE (16:20)
[2018-04-30] MEDS ORDERED: Famotidine/PF 20 mg/2ml Vial ONE (16:21)
[2018-04-30 16:27] LABS: #Eosinphils 0.4 thou/uL (0.0-0.7); #Lymphocytes 2.3 thou/uL (1.20-3.40); #Monocytes 1.1 thou/uL (0.11-0.59); #Neutrophils 6.9 thou/uL (1.40-6.50); %Basophils 0.3 % (0.0-1.0); %Eosinophils 3.6 % (0.0-10.0); %Lymphocytes 21.7 % (21.0-51.0); %Monocytes 10.1 % (0.0-10.0); %Neutrophils 64.3 % (42.0-75.0); Mean Corpuscular HGB CONC 34.8 g/dL (32.0-36.0); Mean Corpuscular Hemoglobin 32.4 pg (27.0-31.0); Mean Corpuscular Volume 93.1 fL (78.0-98.0); Mean Platelet Volume 7.1 fL (7.4-10.4); Platelet Count 283 thou/uL (130-400); RBC Distribution Width 11.8 % (11.5-14.5); Red Blood Cell (RBC) Count 4.95 mill/uL (4.70-6.10); White Blood Cell (WBC) Count 10.7 thou/uL (4.8-10.8)
--- NOTE | 2018-04-30 16:52 | RAD ---
CHEST TWO VIEWS: 04/30/18 HISTORY: Chest tightness. COMPARISON: 01/21/11 exam. Tracheostomy tube is in place. Heart size and mediastinal structures are within normal limits. The ruperto ngs are clear of infiltrates. IMPRESSION: No active intrathoracic disease. POS: [facility]
[2018-04-30 16:53] LABS: ALT (SGPT) 58 U/L (8-55); AST (SGOT) 92 U/L (5-34); Albumin 4.3 g/dL (3.5-5.0); Alkaline Phosphatase 87 U/L (40-150); Anion Gap 16 mmol/L (10-20); BUN (Urea Nitrogen) 19 mg/dL (8.9-20.6); Bilirubin, Total 1.3 mg/dL (0.2-1.2); CK (CPK) 2067 U/L (30-200); Calc. Creatinine Clearance 0 mL/min (70-130); Calcium 9.7 mg/dL (7.8-10.44); Carbon Dioxide 22 mmol/L (22-29); Chloride 104 mmol/L (98-107); Estimated GFR-MDRD 79; Globulin 3.2 g/dL (2.4-3.5); Glucose 116 mg/dL (70-105); Protein, Total 7.5 g/dL (6.0-8.3); Sodium 139 mmol/L (136-145)
[2018-04-30 16:54] LABS: CKMB 2.9 ng/mL (0-6.6); Troponin I Less than 0.010 ng/mL (< 0.028)
== END 2018-04-30 19:15 | disposition home or self-care (01) ==
LOC: ERS 15:47
DX: R07.89 Other chest pain (principal); R79.89 Other specified abnormal findings of blood chemistry; B20 Human immunodeficiency virus [HIV] disease; F41.9 Anxiety disorder, unspecified; F31.9 Bipolar disorder, unspecified
CPT/HCPCS: 36415; 71046; 80053; 82550; 82553; 84484; 85025; 87804; 93005; 96361; 96374; 96375; J1200; J2930; S0028

== ENCOUNTER 2020-10-23 14:05 | Emergency (ER) | payer OTHER, SELFPAY ==
[2020-10-23] MEDS ORDERED: Ketorolac Tromethamine 30 MG/ML VIAL ONE (14:57)
[2020-10-23 15:36] LABS: #Basophils 0.1 thou/uL (0.0-0.2); #Eosinphils 0.1 thou/uL (0.0-0.7); #Lymphocytes 2.5 thou/uL (1.20-3.40); #Monocytes 0.9 thou/uL (0.11-0.59); #Neutrophils 6.4 thou/uL (1.40-6.50); %Basophils 0.6 % (0.0-1.0); %Eosinophils 1.3 % (0.0-10.0); %Lymphocytes 24.7 % (21.0-51.0); %Monocytes 8.6 % (0.0-10.0); %Neutrophils 64.7 % (42.0-75.0); Mean Corpuscular HGB CONC 34.3 g/dL (32.0-36.0); Mean Corpuscular Volume 96.3 fL (78.0-98.0); Mean Platelet Volume 6.5 fL (7.4-10.4); Platelet Count 326 thou/uL (130-400); RBC Distribution Width 12.7 % (11.5-14.5); Red Blood Cell (RBC) Count 4.55 mill/uL (4.70-6.10); White Blood Cell (WBC) Count 9.9 thou/uL (4.8-10.8)
[2020-10-23 15:56] LABS: ALT (SGPT) 17 U/L (8-55); AST (SGOT) 18 U/L (5-34); Alkaline Phosphatase 84 U/L (40-110); Anion Gap 12 mmol/L (10-20); BUN (Urea Nitrogen) 13 mg/dL (8.9-20.6); Bilirubin, Total 0.3 mg/dL (0.2-1.2); Calc. Creatinine Clearance 0 mL/min (70-130); Calcium 8.6 mg/dL (7.8-10.44); Carbon Dioxide 22 mmol/L (22-29); Chloride 107 mmol/L (98-107); Globulin 3.6 g/dL (2.4-3.5); Glucose 95 mg/dL (70-105); Potassium 3.6 mmol/L (3.5-5.1); Protein, Total 7.6 g/dL (6.0-8.3); Sodium 137 mmol/L (136-145)
[2020-10-23 15:57] LABS: Acetaminophen Less than 6.0 mcg/mL (10.0-30.0); Alcohol Less than 10 mg/dL (Less than 10); Salicylate Less than 8.0 mg/dL (15.0-30.0)
[2020-10-23 16:46] LABS: Bilirubin Negative (Negative); Blood, Urine Negative (Negative); Clarity Clear (Clear); Glucose, Urine (Dipstick) Normal (Negative); Ketone, Urine Negative (Negative); Leukocyte Negative Leu/uL (Negative); Nitrite Negative (Negative); Protein, Urine (Dipstick) 10 mg/dL (Neg-Trace); Specific Gravity, Urine 1.025 (1.002-1.036); Urobilinogen Normal mg/dL (Less than 2)
[2020-10-23 16:56] LABS: Amphetamine Not Detected (NotDetected); Barbiturates Screen Not Detected (NotDetected); Benzodiazepine Screen Not Detected (NotDetected); Cocaine Metabolite Screen Not Detected (NotDetected); Medtox Control Line Valid? VALID (VALID); Medtox Reader # READER 4; Methadone Not Detected (NotDetected); Methamphetamine Not Detected (NotDetected); Opiate Screen Not Detected (NotDetected); Oxycodone Screen Not Detected (NotDetected); Phencyclidine (PCP) Detected (NotDetected); THC/Cannabinoid Screen Not Detected (NotDetected); Tricyclic Screen Not Detected (NotDetected)
== END 2020-10-23 19:21 | disposition home or self-care (01) ==
LOC: ERS 14:05
DX: F43.0 Acute stress reaction (principal); Z93.0 Tracheostomy status; Z79.899 Other long term (current) drug therapy; V89.2XXA Person injured in unspecified motor-vehicle accident, traffic, initial encounter
CPT/HCPCS: 36415; 70450; 72125; 72128; 72131; 80053; 80306; 80307; 81003; 84443; 85025; 93005; 96372; J1885

== ENCOUNTER 2020-11-04 19:49 | Emergency (ER) | payer OTHER | END 2020-11-04 21:28 | disposition home or self-care (01) | LOC: ERS 19:49 | DX: S39.012A Strain of muscle, fascia and tendon of lower back, initial encounter (principal); M54.6 Pain in thoracic spine; M54.2 Cervicalgia; H53.9 Unspecified visual disturbance; B20 Human immunodeficiency virus [HIV] disease; Z79.899 Other long term (current) drug therapy; X58.XXXA Exposure to other specified factors, initial encounter | CPT/HCPCS: 70450; 71045 ==

== ENCOUNTER 2020-11-25 11:37 | Emergency (ER) | payer SELFPAY ==
[2020-11-25 13:02] LABS: #Eosinphils 0.1 thou/uL (0.0-0.7); #Lymphocytes 1.9 thou/uL (1.20-3.40); #Monocytes 0.6 thou/uL (0.11-0.59); %Basophils 0.2 % (0.0-1.0); %Eosinophils 0.7 % (0.0-10.0); %Lymphocytes 19.5 % (21.0-51.0); %Monocytes 6.2 % (0.0-10.0); %Neutrophils 73.5 % (42.0-75.0); Hemoglobin 16.2 g/dL (14.0-18.0); Mean Corpuscular HGB CONC 33.9 g/dL (32.0-36.0); Mean Corpuscular Hemoglobin 32.8 pg (27.0-31.0); Mean Corpuscular Volume 96.7 fL (78.0-98.0); Mean Platelet Volume 6.3 fL (7.4-10.4); Platelet Count 257 thou/uL (130-400); RBC Distribution Width 13.4 % (11.5-14.5); Red Blood Cell (RBC) Count 4.93 mill/uL (4.70-6.10); White Blood Cell (WBC) Count 9.5 thou/uL (4.8-10.8)
[2020-11-25 13:32] LABS: Anion Gap 13 mmol/L (10-20); BUN (Urea Nitrogen) 18 mg/dL (8.9-20.6); Calc. Creatinine Clearance 0 mL/min (70-130); Carbon Dioxide 23 mmol/L (22-29); Chloride 105 mmol/L (98-107); Potassium 4.2 mmol/L (3.5-5.1); Sodium 137 mmol/L (136-145)
[2020-11-25 13:33] LABS: ALT (SGPT) 20 U/L (8-55); AST (SGOT) 20 U/L (5-34); Alkaline Phosphatase 96 U/L (40-110); Bilirubin, Total 0.5 mg/dL (0.2-1.2); CK (CPK) 43 U/L (30-200); Calcium 9.3 mg/dL (7.8-10.44); Globulin 3.4 g/dL (2.4-3.5); Glucose 94 mg/dL (70-105); Protein, Total 7.4 g/dL (6.0-8.3)
[2020-11-25 13:48] LABS: Acetaminophen Less than 6.0 mcg/mL (10.0-30.0); Alcohol Less than 10 mg/dL (Less than 10); Salicylate Less than 8.0 mg/dL (15.0-30.0)
[2020-11-25 14:17] LABS: Medtox Reader # READER 4; Phencyclidine (PCP) Detected (NotDetected); THC/Cannabinoid Screen Not Detected (NotDetected)
[2020-11-25 14:18] LABS: Amphetamine Not Detected (NotDetected); Barbiturates Screen Not Detected (NotDetected); Benzodiazepine Screen Not Detected (NotDetected); Cocaine Metabolite Screen Detected (NotDetected); Medtox Control Line Valid? VALID (VALID); Methadone Not Detected (NotDetected); Methamphetamine Not Detected (NotDetected); Opiate Screen Not Detected (NotDetected); Oxycodone Screen Not Detected (NotDetected); Tricyclic Screen Not Detected (NotDetected)
== END 2020-11-25 18:11 | disposition home or self-care (01) ==
LOC: ERS 11:37
DX: F41.9 Anxiety disorder, unspecified (principal); Z79.899 Other long term (current) drug therapy; Z21 Asymptomatic human immunodeficiency virus [HIV] infection status
CPT/HCPCS: 36415; 71045; 80053; 80306; 80307; 82550; 84443; 84484; 85025; 93005

== ENCOUNTER 2021-02-09 21:31 | Emergency (ER) | payer OTHER | END 2021-02-09 22:22 | disposition home or self-care (01) | LOC: ERS 21:31 | DX: J95.03 Malfunction of tracheostomy stoma (principal); B20 Human immunodeficiency virus [HIV] disease | CPT/HCPCS: 31502 ==

== ENCOUNTER 2021-05-05 20:34 | Emergency (ER) | payer OTHER | END 2021-05-06 01:41 | disposition left against medical advice (07) | LOC: ERS 20:34 | DX: Z53.21 Procedure and treatment not carried out due to patient leaving prior to being seen by health care provider (principal) ==

== ENCOUNTER 2021-05-06 15:50 | Emergency (ER) | payer OTHER | END 2021-05-06 17:02 | disposition home or self-care (01) | LOC: ERS 15:50 | DX: L03.116 Cellulitis of left lower limb (principal); B20 Human immunodeficiency virus [HIV] disease; F31.9 Bipolar disorder, unspecified; Z79.899 Other long term (current) drug therapy ==

== ENCOUNTER 2022-04-09 13:40 | Emergency (ER) | payer OTHER | END 2022-04-09 14:35 | disposition home or self-care (01) | LOC: ERS 13:40 | DX: R07.89 Other chest pain (principal); B20 Human immunodeficiency virus [HIV] disease | CPT/HCPCS: 93005 ==